=== PATIENT | male | born 1960 | race African-American/Black ===

== ENCOUNTER 2021-01-31 16:14 | Inpatient (IN) | payer OTHER ==
[2021-01-31 16:47] VITALS: BMI 43.4
[2021-01-31] MEDS ORDERED: Acetaminophen 325 MG TAB PO PRN (17:25)
[2021-01-31] MEDS ORDERED: HYDROcodone/Acetaminophen 5/325 mg Tablet PO PRN (17:25)
[2021-01-31] MEDS ORDERED: Ondansetron PF 4 MG/2 ML Vial IVP PRN (17:25)
[2021-01-31] MEDS ORDERED: Senokot S 8.6-50 MG TAB PO PRN (17:25)
[2021-01-31 18:31] LABS: Troponin I 0.017 ng/mL (< 0.028)
[2021-01-31 19:57] LABS: Troponin I 0.017 ng/mL (< 0.028)
[2021-01-31] MEDS: Atorvastatin Calcium 40 MG TAB PO SCH (21:08)
[2021-02-01 06:26] LABS: #Basophils 0.1 10x3/uL (0.0-0.2); #Eosinphils 0.1 10x3/uL (0.0-0.5); #Monocytes 0.8 10x3/uL (0.0-1.1); #Neutrophils 3.4 10x3/uL (1.5-8.4); %Eosinophils 1.6 % (0.0-6.0); %Lymphocytes 25.8 % (18.0-47.0); %Monocytes 13.3 % (0.0-10.0); %Neutrophils 58.1 % (40.0-75.0); Hemoglobin 12.7 g/dL (13.5-17.5); Mean Corpuscular HGB CONC 32.2 g/dL (32.0-36.0); Mean Corpuscular Hemoglobin 28.9 pg (27.0-33.0); Mean Platelet Volume 11.2 fl (7.4-10.4); Platelet Count 254 10x3/uL (150-450); RBC Distribution Width 16.6 % (11.5-14.5); Red Blood Cell (RBC) Count 4.39 10x6/uL (4.32-5.72); White Blood Cell (WBC) Count 5.8 10x3/uL (3.5-10.5)
[2021-02-01 06:50] LABS: Anion Gap 14 mmol/L (10-20); BUN (Urea Nitrogen) 16 mg/dL (8.4-25.7); Calc. Creatinine Clearance 127 mL/min (70-130); Calcium 9.5 mg/dL (7.8-10.44); Carbon Dioxide 29 mmol/L (22-29); Chloride 101 mmol/L (98-107); Glucose 106 mg/dL (70-105); Potassium 3.8 mmol/L (3.5-5.1); Sodium 140 mmol/L (136-145)
[2021-02-01] MEDS: Lisinopril 5 MG TAB PO SCH (07:37)
[2021-02-01] MEDS: Clopidogrel Bisulfate 75 MG TAB PO SCH (07:37)
[2021-02-01] MEDS: Furosemide 40 MG TAB PO SCH (07:37)
[2021-02-01] MEDS: Aspirin Chewable 81 MG TAB PO SCH (07:38)
[2021-02-01] MEDS: Carvedilol 3.125 MG TAB PO SCH ×2 (07:38→17:25)
[2021-02-01] MEDS ORDERED: Furosemide 40 MG/4 ML VIAL SLOW IVP SCH (10:00)
[2021-02-01 11:06] LABS: SARS-CoV-2 PCR by NAA Not Detected (NotDetected)
[2021-02-01] MEDS: Atorvastatin Calcium 40 MG TAB PO SCH (19:40)
[2021-02-02] MEDS: Aspirin Chewable 81 MG TAB PO SCH (10:00)
[2021-02-02] MEDS: Lisinopril 5 MG TAB PO SCH (10:00)
[2021-02-02] MEDS: Carvedilol 3.125 MG TAB PO SCH ×3 (10:00→19:06)
[2021-02-02] MEDS: Clopidogrel Bisulfate 75 MG TAB PO SCH (10:00)
[2021-02-02] MEDS: Furosemide 40 MG TAB PO SCH (10:00)
[2021-02-02] MEDS ORDERED: Furosemide 40 MG/4 ML VIAL SLOW IVP SCH (15:00)
[2021-02-02] MEDS: Atorvastatin Calcium 40 MG TAB PO SCH (20:27)
[2021-02-03 03:47] LABS: Anion Gap 14 mmol/L (10-20); BUN (Urea Nitrogen) 14 mg/dL (8.4-25.7); Calc. Creatinine Clearance 133 mL/min (70-130); Calcium 9.3 mg/dL (7.8-10.44); Carbon Dioxide 27 mmol/L (22-29); Chloride 99 mmol/L (98-107); Glucose 105 mg/dL (70-105); Magnesium 2.1 mg/dL (1.6-2.6); Potassium 3.7 mmol/L (3.5-5.1); Sodium 136 mmol/L (136-145)
[2021-02-03] MEDS ORDERED: Potassium Chloride 20 MEQ TAB PO SCH (09:00)
[2021-02-03] MEDS ORDERED: Furosemide 20 MG TAB PO SCH (09:00)
[2021-02-03] MEDS: Aspirin Chewable 81 MG TAB PO SCH (09:02)
[2021-02-03] MEDS: Clopidogrel Bisulfate 75 MG TAB PO SCH (09:02)
[2021-02-03] MEDS: Lisinopril 5 MG TAB PO SCH (09:02)
[2021-02-03] MEDS: Carvedilol 3.125 MG TAB PO SCH (09:03)
[2021-02-03 10:01] VITALS: BP 108/72; TEMP 98.2
== END 2021-02-03 10:59 | disposition home or self-care (01) | DRG 291 ==
LOC: INTOOBSV 16:14 → UNDOADMOB 16:14 → OBSVTOIN 16:14 → CSHTELE 16:14 → OBSVTOIN 02-02 11:03
PROVIDERS: ADMIT Family Medicine; ATTEND Family Medicine
DX: I11.0 Hypertensive heart disease with heart failure (principal); I50.43 Acute on chronic combined systolic (congestive) and diastolic (congestive) heart failure; I42.8 Other cardiomyopathies; F20.9 Schizophrenia, unspecified; F41.9 Anxiety disorder, unspecified; F32.A Depression, unspecified; F17.210 Nicotine dependence, cigarettes, uncomplicated; F14.10 Cocaine abuse, uncomplicated; Z20.822 Contact with and (suspected) exposure to COVID-19; E78.5 Hyperlipidemia, unspecified; I25.10 Atherosclerotic heart disease of native coronary artery without angina pectoris; Z79.82 Long term (current) use of aspirin; Z79.899 Other long term (current) drug therapy; Z91.19 Patient's noncompliance with other medical treatment and regimen; I25.2 Old myocardial infarction
CPT/HCPCS: 36415; 71046; 80048; 83735; 83880; 85025; 94760; 96374; G0378; J1940; U0003; U0005